=== PATIENT | female | born 1945 | race Caucasian/White ===

== ENCOUNTER 2021-05-25 11:15 | Outpatient (CLI) | payer MEDICARE, SELFPAY ==
--- NOTE | ~2021-05-25 | XR_ITS ---
EXAMINATION: XR_[id number]_CR EXAM DATE: 05/25/2021 11:35 INDICATION: No known recent injury provided at this time. Pain of the cervical spine. TECHNIQUE: Cervical spine frontal, lateral, lateral swimmers, and open-mouth odontoid projections. There is no prior study for comparison. FINDINGS: 2 mm anterolisthesis C3 on C4, 3 mm anterolisthesis C4 on C5 and C5 on C6, 2 mm anterolist hesis C6 on C7. There is moderate to severe cervical arthropathy. Mild to moderate loss of the mid ce rvical disc height. The odontoid process is intact. The lateral masses of C1 line up with C2. Prever tebral soft tissue and pre-dens space are within normal limits. Lung apices unremarkable. Mild carotid calcification, arterial sclerotic disease, with unknown amount of additional atheroscler otic disease. Consider correlating with carotid ultrasound. IMPRESSION: 1. Moderate to severe cervical arthropathy, mild to moderate disc disease. 2. Carotid arteriosclerosis. Reviewed, dictated and finalized at location A. INDER
== END 2021-05-25 11:16 | disposition home or self-care (01) ==
PROVIDERS: PCP Family Medicine; Visit Provider Family Medicine
DX: M47.812 Spondylosis without myelopathy or radiculopathy, cervical region (principal); I65.29 Occlusion and stenosis of unspecified carotid artery
CPT/HCPCS: 72040

== ENCOUNTER 2021-07-08 07:05 | Emergency (ER) | payer MEDICARE, SELFPAY ==
[2021-07-08 07:11] VITALS: BP 127/54; PULSE 68; RESP 21; TEMP 36.4; O2SAT 97
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
[2021-07-08] MEDS: LORazepam (*CRX) 0.5 MG TABLET 1 MG PO (07:45)
[2021-07-08 08:45] VITALS: BP 135/87; PULSE 58; RESP 16
== END 2021-07-08 08:45 | disposition home or self-care (01) ==
LOC: ANHED 08:06
PROVIDERS: Emergency Provider Emergency Medicine; PCP Family Medicine
DX: F41.0 Panic disorder [episodic paroxysmal anxiety] (principal); F41.9 Anxiety disorder, unspecified; F51.02 Adjustment insomnia; I10 Essential (primary) hypertension; E78.5 Hyperlipidemia, unspecified
CPT/HCPCS: 99283; A9270

== ENCOUNTER 2021-07-27 09:52 | Outpatient (CLI) | payer MEDICARE, SELFPAY ==
[2021-07-27 10:33] LABS: Alanine Aminotransferase 30 U/L (6-35); Albumin Level 4.1 g/dL (3.5-5.1); Alkaline Phosphatase 61 U/L (38-126); Anion Gap 7 mmol/L (8-16); Aspartate Amino Transferase 43 U/L (14-36); Bilirubin,Total 0.5 mg/dL (0.2-1.3); Blood Urea Nitrogen 17 mg/dL (7-17); Calcium 9.1 mg/dL (8.4-10.2); Carbon Dioxide 30 mmol/L (22-30); Chloride 87 mmol/L (98-107); Estimated Glomerular Filt Rate > 60; Glucose 122 mg/dL (65-110); Potassium 3.7 mmol/L (3.4-5.0); Sodium 124 mmol/L (137-145)
== END 2021-07-27 09:53 | disposition home or self-care (01) ==
LOC: ANHLAB 09:55
PROVIDERS: PCP Family Medicine; Visit Provider Family Medicine
DX: E87.1 Hypo-osmolality and hyponatremia (principal)
CPT/HCPCS: 36415; 80053

== ENCOUNTER 2021-07-29 13:15 | Outpatient (CLI) | payer MEDICARE, SELFPAY ==
[2021-07-29 13:52] LABS: Alanine Aminotransferase 29 U/L (6-35); Albumin Level 3.8 g/dL (3.5-5.1); Alkaline Phosphatase 61 U/L (38-126); Anion Gap 5 mmol/L (8-16); Aspartate Amino Transferase 36 U/L (14-36); Bilirubin,Total 0.4 mg/dL (0.2-1.3); Blood Urea Nitrogen 17 mg/dL (7-17); Calcium 8.3 mg/dL (8.4-10.2); Carbon Dioxide 29 mmol/L (22-30); Chloride 91 mmol/L (98-107); Estimated Glomerular Filt Rate > 60; Glucose 110 mg/dL (65-110); Potassium 4.1 mmol/L (3.4-5.0); Sodium 125 mmol/L (137-145)
== END 2021-07-29 13:16 | disposition home or self-care (01) ==
PROVIDERS: PCP Family Medicine; Visit Provider Family Medicine
DX: E87.1 Hypo-osmolality and hyponatremia (principal)
CPT/HCPCS: 36415; 80053

== ENCOUNTER 2021-08-03 10:19 | Outpatient (CLI) | payer MEDICARE, SELFPAY ==
[2021-08-03 11:01] LABS: Sodium Urine Random 57 meq/L
[2021-08-03 11:04] LABS: Anion Gap 4 mmol/L (8-16); Blood Urea Nitrogen 13 mg/dL (7-17); Calcium 8.6 mg/dL (8.4-10.2); Carbon Dioxide 30 mmol/L (22-30); Chloride 98 mmol/L (98-107); Estimated Glomerular Filt Rate > 60; Glucose 154 mg/dL (65-110); Potassium 3.6 mmol/L (3.4-5.0); Sodium 132 mmol/L (137-145)
[2021-08-06 10:49] LABS: Osmolality, Urine 232 mOsm/kg (50-1200)
== END 2021-08-03 10:20 | disposition home or self-care (01) ==
LOC: ANHLAB 10:24
PROVIDERS: PCP Family Medicine
DX: E87.1 Hypo-osmolality and hyponatremia (principal)
CPT/HCPCS: 36415; 80048; 83935; 84300

== ENCOUNTER 2021-08-18 10:35 | Outpatient (CLI) | payer MEDICARE, SELFPAY ==
[2021-08-18 11:24] LABS: Anion Gap 5 mmol/L (8-16); Blood Urea Nitrogen 16 mg/dL (7-17); Calcium 8.9 mg/dL (8.4-10.2); Carbon Dioxide 28 mmol/L (22-30); Chloride 104 mmol/L (98-107); Estimated Glomerular Filt Rate > 60; Glucose 56 mg/dL (65-110); Potassium 4.1 mmol/L (3.4-5.0); Sodium 137 mmol/L (137-145)
[2021-08-20 15:53] LABS: Osmolality, Urine 294 mOsm/kg (50-1200)
== END 2021-08-18 10:36 | disposition home or self-care (01) ==
PROVIDERS: PCP Family Medicine
DX: E87.1 Hypo-osmolality and hyponatremia (principal)
CPT/HCPCS: 36415; 80048; 83935

== ENCOUNTER 2022-02-10 07:04 | Outpatient (CLI) | payer MEDICARE, SELFPAY ==
--- NOTE | ~2022-02-10 | CT_ITS ---
EXAMINATION: CT brain wo/w con DATE: 02/10/2022 07:32 INDICATION: Aphasia. Visual disturbance. TECHNIQUE: Computed tomography (CT) of the head was performed without and with 100 mL Omnipaque 350 i ntravenous contrast. The mA was adjusted according to patient size. Iterative reconstruction techniqu e was employed. The dose-length product was 1210.67 mGy-cm. COMPARISON: None FINDINGS: There are scattered areas of low attenuation in the cerebral white matter. There is no intr acranial hemorrhage, acute infarction, or abnormal intracranial mass lesion. The ventricles are makayla l in size. There is mild mucosal thickening in the ethmoid sinuses. The mastoid air cells are normal. The orbits are normal. IMPRESSION: 1. Mild nonspecific cerebral white matter disease, which likely represents chronic small vessel ische lindsey disease. Reviewed, dictated and finalized at location A. L VIAL SETTER IMPRESSION: 1. Mild nonspecific cerebral white matter disease, which likely represents stone driller helper giovanna small vessel ischemic disease.
[2022-02-10 07:28] LABS: Estimated Glomerular Filt Rate 54
== END 2022-02-10 07:05 | disposition home or self-care (01) ==
PROVIDERS: PCP Family Medicine; Visit Provider Nurse Practitioner Family
DX: R13.0 Aphagia (principal); H53.9 Unspecified visual disturbance; R90.82 White matter disease, unspecified
CPT/HCPCS: 70470; Q9967

== ENCOUNTER 2024-10-06 11:21 | Observation (INO) | payer MEDICARE, SELFPAY ==
[2024-10-06] VITALS (15 sets, daily range): BP systolic 124–203; BP diastolic 67–93; PULSE 56–114; RESP 10–21; TEMP 36.3–36.9; O2SAT 95–100; BMI 20.1
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
--- NOTE | ~2024-10-06 | MR_ITS ---
MRI of the brain Clinical History: Lightheadedness Technique: Axial and sagittal T1-weighted images were acquired. These were followed by axial T2-weigh roberto, diffusion weighted, gradient, and FLAIR images. Following intravenous administration of 10 cc Pr oHance gadolinium, T1-weighted fat-sat imaging was performed in the axial and coronal planes. Findings: There is no acute infarct, intracranial hemorrhage or mass lesion. There is moderate chroni c microvascular ischemic change throughout the periventricular white matter bilaterally. Ventricles and subarachnoid spaces are unremarkable. Orbits are unremarkable. Paranasal sinuses and m astoid air cells are clear. Major intracranial flow voids are intact. Sagittal midline structures are intact. No abnormal postcontrast enhancement identified. IMPRESSION: Moderate chronic microvascular ischemic change, otherwise unremarkable exam. Reviewed, dictated and finalized at location M.
--- NOTE | ~2024-10-06 | CT_ITS ---
Non-contrast Head CT History: Dizziness COMPARISON: 02/10/2022 Technique: Axial non-contrast imaging of the brain was performed. Dose reduction technique was used on this scan by utilizing automated exposure control and iterative reconstruction technique. The dose -length product (DLP) was 605.33 mGy-cm. Findings: There is no evidence of intracranial hemorrhage, mass lesion, or acute infarct. Brain par enchyma appears normal. The ventricles and subarachnoid spaces are normal in size. The calvarium ap pears normal. The visualized paranasal sinuses and mastoid air cells are clear. Impression: No significant abnormality seen. Reviewed, dictated and finalized at location . Impression: No significant abnormality seen.
--- OUTSIDE RECORDS SUMMARY | 2024-10-06 11:25 | XMS_ITS | Clinical Summary ---
Author Organization [facility] Address [address] [place] [address] Care Team Providers Care Linoleum Floor Layer Name Role Phone George Maria MD Primary Care Provider Allergies Active Allergy Reactions Criticality Noted Date Comments Penicillins Unknown 07/30/2021 Medications clonazePAM 0.25 MG disintegrating tablet DISSOLVE 1 TABLET IN MOUTH TWICE DAILY 2 Active atorvastatin 10 MG tablet 2 Active metoprolol tartrate 50 MG tablet 2 Active amLODIPine 5 MG tablet Take 5 mg by mouth daily. 2 Active ondansetron 8 MG disintegrating tablet DISSOLVE 1 TABLET IN MOUTH EVERY 8 HOURS NEEDED FOR NAUSEA AND VOMITING 2 Active Cholecalciferol (VITAMIN D3) 50 MCG (1999 UT) Cap Take 1 capsule by mouth daily. 2 Active escitalopram 10 MG tablet Take 10 mg by mouth daily. 2 Active ALPRAZolam 0.25 MG tablet Take 0.25 mg by mouth 2 (two) times daily as needed. FOR ANXIETY 2 Active sertraline 25 MG tablet Take 25 mg by mouth daily. 2 Active triamterene-hydroCH LOROthiazide 37.5-25 MG tablet 2 Active Ascorbic Acid (VITAMIN C) 100 MG tablet Take 100 mg by mouth daily. Active multivitamin with minerals liquid Take 15 mLs by mouth daily. Active vitamin B-12 100 MCG tablet Take 50 mcg by mouth daily. Active diphenhydrAMINE 12.5 MG/5ML elixir Take by mouth 4 (four) times daily as needed for Allergies. Active loratadine 10 MG tablet Take 10 mg by mouth daily. Active Active Problems Problem Noted Date Diagnosed Date Hyponatremia 07/30/2021 Primary hypertension 07/30/2021 Immunizations Immunization Administration Dates Next Due Tdap (Generic) 03/06/2014 Social History Tobacco Use Types Packs/Day Years Used Date Smoking Tobacco: Former Smokeless Tobacco: Never Tobacco Cessation:Counseling Given: Yes Alcohol Use Standard Drinks/Week Comments Yes 0 (1 standard drink = 0.6 oz pur e alcohol) rare PHQ-2 Answer Date Recorded PHQ-2 Score - If the patient scores above 3, please move on to questions 3-9 0 07/30/2021 Comments No Sex and Gender Information Value Date Recorded Sex Assigned at Not on file Legal Sex Female 7:58 AM CDT Gender Identity Not on file Sexual Orientation Not on file Last Filed Vital Signs Vital Sign Reading Time Taken Comments Blood Pressure 136/82 07/30/2021 3:08 PM CDT Pulse 68 07/30/2021 3:08 PM CDT Temperature 36.7 C (98.1 F) 07/30/2021 3:08 PM CDT Respiratory Rate - - Oxygen Saturation 98% 07/30/2021 3:08 PM CDT ra Inhaled Oxygen Concentration - - Weight 50.3 kg (111 lb) 07/30/2021 3:08 PM CDT Height 157.5 cm (5' 2) 07/30/2021 3:08 PM CDT Body Mass Index 20.3 07/30/2021 3:08 PM CDT Plan of Treatment Health Maintenance Due Date Last Done Comments Pneumococcal Vaccine: 50+ Years (1 of 1 - PCV) 1994 Zoster Vaccines (1 of 2) 1994 Annual Medicare Wellness Visit 2009 Dexa Scan (General) 2009 RSV Immunization or 60+ Years (1 - 1-dose 75+ series) 2019 COVID-19 Vaccine ( - 2023-2 5 season) 2023 02/27/2021, 06/25/2020, 05/28/2020 DTaP, Tdap and Td Vaccines ( 2 - Td or Tdap) 03/06/2024 03/06/2014 Meningococcal B Vaccine Aged Out No l onger eligible based on patient's age to complete this topic Meningococcal Vaccine Aged Out No suly wu eligible based on patient's age to complete this topic RSV Immunizations Under 20 Months Aged Out No longer eligible b ased on patient's age to complete this topic Insurance [facility] Care Teams Linoleum Floor Layer Relationship Specialty Start Date End Date George Maria MD [address] [place] [address] PCP - General FAMILY PRACTICE 07/30/21
--- OUTSIDE RECORDS SUMMARY | 2024-10-06 11:25 | XMS_ITS | Patient Health Record ---
Author Organization [facility] Address [address] [place] [address] Care Team Providers Care Music Engraver Name Role Phone Tristan Sims Unavailable [phone] Reason For Referral No Information Medications Medication SIG (Take, Route, Frequency, Duration) Notes Start Date End Date Status Triamterene-HCTZ 37.5-25 MG Oral 11/30/2022 Active Atorvastatin Calcium 10 MG Oral 11/30/2022 Active Benzonatate 100 MG Oral 11/30/2022 Active Escitalopram Oxalate 10 MG Oral 11/30/2022 Active traZODone HCl 50 MG Oral 11/30/2022 Active Ondansetron 8 MG Oral 11/30/2022 Ac tive amLODIPine Besylate 5 MG Oral 11/30/2022 Active Metoprolol Tartrate 50 MG Oral 11/30/2022 Active Vitamin D3 Super Strength 50 MCG (1999) Oral 11/30/2022 Active ALPRAZolam 0.25 MG Oral 11/30/2022 Active Immunizations Vaccine Route Administration Date Status Comme nts Pfizer-Biontech Covid-19 Vac cine 1st dose Unknown 05/28/2020 Administered Pfizer-Biontech Covid-19 Vac cine 1st dose Unknown 06/25/2020 Administered Pfizer-Biontech Covid-19 Vac cine 1st dose Unknown 02/27/2021 Administered Plan Of Treatment No Information Insurance Providers Payer Name Payer Address Payer Phone Subscriber Number Group Number Insured Name Patient Relationship to Insured Coverage Start Date Coverage End Date [employer] Medicare Replacement/ Advantage - Hmo [address] [address] [place] [address] [id number] JENNIFER MCDERMOTT Self - patient is the insured
--- OUTSIDE RECORDS SUMMARY | 2024-10-06 12:55 | XMS_ITS | Clinical Summary ---
Author Organization [facility] Address [address] [place] [address] Care Team Providers Care Stain Remover Name Role Phone George Maria MD Primary [...] patient's age to complete this topic Insurance [facility] Care Teams Stain Remover Relationship Specialty Start Date End Date George Maria MD [address] [place] [address] PCP - General FAMILY PRACTICE 07/30/21
[2024-10-06] MEDS: diazePAM INJ (*CRX) 10 MG/2 ML SYRINGE 5 MG IV PUSH (13:37)
--- NOTE | 2024-10-06 13:49 | ECG_ITS ---
Test Date: 2024-10-06 14:29:24 Measurements Intervals [place] Rate: 54 P: 64 CA: 171 QRS: -17 QRSD: 73 T: 44 QT: 390 QTc: 371 Interpretive Statements SINUS BRADYCARDIA OTHERWISE NORMAL ELECTROCARDIOGRAM No previous ECG available for comparison Electronically Signed On 10-07-2024 08:06:42 CDT by Thee Cabello M.D.
[2024-10-06 13:53] LABS: Hematocrit 42.6 % (37.0-47.0); Hemoglobin 13.8 g/dL (12.0-15.0); Immature Granulocyte Percent A 0.4 % (0-0.5); Lymphocytes Absolute Auto 1.83 K/mm3 (0.9-3.2); Mean Corpuscular HGB Conc 32.4 g/dl (32-36); Mean Corpuscular Hemoglobin 31.2 pg (26-34); Mean Corpuscular Volume 96.2 fl (80-100); Nucleated Red Blood Cells Absolute Auto 0.000 K/mm3 (0.0-0.012); Nucleated Red Blood Cells Perc 0.0 % (0.0-0.2); Platelet Count Result 267 k/mm3 (150-375); Red Blood Count 4.43 M/mm3 (4.2-5.4); White Blood Count 8.3 K/mm3 (4.5-10.0)
[2024-10-06 14:09] LABS: Alanine Aminotransferase 18 U/L (6-35); Albumin Level 4.1 g/dL (3.5-5.1); Alkaline Phosphatase 69 U/L (38-126); Anion Gap 8 mmol/L (4-12); Aspartate Amino Transferase 36 U/L (14-36); Bilirubin,Total 0.6 mg/dL (0.2-1.3); Blood Urea Nitrogen 12 mg/dL (7-17); Calcium 9.4 mg/dL (8.4-10.2); Carbon Dioxide 26 mmol/L (22-30); Chloride 105 mmol/L (98-107); Estimated CRCL calculation 40 ml/min; Estimated Glomerular Filt Rate > 60; Glucose 87 mg/dL (65-110); Potassium 4.3 mmol/L (3.4-5.0); Sodium 139 mmol/L (137-145); Total Protein 7.3 g/dL (6.3-8.2)
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
--- NOTE | 2024-10-06 15:36 | PC.NURSE ---
Patient ambulated to the bathroom with a steady gait.
[2024-10-06] MEDS: ASPIRIN 81 MG CHEWABLE TABLET 324 MG PO (16:54)
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
--- OUTSIDE RECORDS SUMMARY | 2024-10-06 18:24 | XMS_ITS | Clinical Summary ---
Author Organization [facility] Address [address] [place] [address] Care Team Providers Care Exchange Administrator Name Role Phone George Maria MD Primary [...] patient's age to complete this topic Insurance [facility] [place] [address] Care Teams Exchange Administrator Relationship Specialty Start Date End Date George Maria MD [address] [place] [address] PCP - General FAMILY PRACTICE 07/30/21
--- NOTE | 2024-10-06 18:38 | ADMGEN ---
This patient, Roxanna Aguilar, was admitted to Medical Room 247-. Patient/family oriented to hospital policies and general routines including ID bracelet, bed and alarms, visiting hours, pain management, procedures, bathroom and other care routines, personal items, smoking policy, room service/diet, and visiting hours. Information on how to activate the Rapid Response Team has been discussed. Patient/Family are encouraged to report perceived risks to care and to ask questions if they do not understand what they are told or what they should do.
[2024-10-06] MEDS: METOPROLOL TARTRATE 50 MG TAB PO (21:01)
[2024-10-06 21:45] LABS: Add Urine Microscopic? YES; Appearance Urine Clear (Clear); Glucose Urine UA Negative (Negative); Leukocyte Esterase Ur Trace LEU/UL (Negative); Nitrate Urine Negative (Negative); Non Pathogenic Casts 0-2; Specific Grav Ur 1.033 (1.001-1.035)
[2024-10-07] VITALS (10 sets, daily range): BP systolic 122–171; BP diastolic 56–85; PULSE 60–70; RESP 12–18; TEMP 36.4–36.7; O2SAT 95–100
[2024-10-07 04:54] LABS: Hematocrit 42.9 % (37.0-47.0); Hemoglobin 14.0 g/dL (12.0-15.0); Immature Granulocyte Percent A 0.3 % (0-0.5); Lymphocytes Absolute Auto 2.02 K/mm3 (0.9-3.2); Mean Corpuscular HGB Conc 32.6 g/dl (32-36); Mean Corpuscular Hemoglobin 30.9 pg (26-34); Mean Corpuscular Volume 94.7 fl (80-100); Nucleated Red Blood Cells Absolute Auto 0.000 K/mm3 (0.0-0.012); Nucleated Red Blood Cells Perc 0.0 % (0.0-0.2); Platelet Count Result 281 k/mm3 (150-375); Red Blood Count 4.53 M/mm3 (4.2-5.4); White Blood Count 7.6 K/mm3 (4.5-10.0)
[2024-10-07 05:02] LABS: Hemoglobin A1C 5.7 % (<5.7)
[2024-10-07 05:30] LABS: Anion Gap 9 mmol/L (4-12); Blood Urea Nitrogen 13 mg/dL (7-17); Calcium 9.4 mg/dL (8.4-10.2); Carbon Dioxide 25 mmol/L (22-30); Chloride 107 mmol/L (98-107); Cholesterol 164 mg/dL (0-200); Estimated CRCL calculation 36 ml/min; Estimated Glomerular Filt Rate > 60; Glucose 94 mg/dL (65-110); HDL Direct 56 mg/dL; Potassium 4.0 mmol/L (3.4-5.0); Sodium 141 mmol/L (137-145); Triglycerides 145 mg/dL (<150)
--- NOTE | 2024-10-07 07:20 | P.PNIM_ITS ---
Progress Note: A&P Assessment and Plan (1) Episodic lightheadedness: Code(s): R42 - Dizziness and giddiness Status: Acute Assessment and Plan: * admission for observation and telemetry * Head CT, 10/06: No significant abnormality seen. * CTA Head/Neck, 10/06: * 80% stenosis of the proximal right internal carotid artery related to prominent calcified plaque. * 50-60% stenosis at the proximal left internal carotid artery, related to calcified plaque. * Probable focal high-grade stenosis at the origin of the right vertebral artery. * neurology consulted * brain MRI w/wo ordered * echo w/Bubble ordered * neuro checks Q4 * monitor daily labs, check lipid panel, UA, and A1C * increase Atorvastatin from 10 mg -> 40 mg PO daily * start Plavix 75 mg PO and ASA 81 mg (2) Stenosis of right vertebral artery: Code(s): I65.01 - Occlusion and stenosis of right vertebral artery Status: Acute Assessment and Plan: * see work up above (3) Carotid artery stenosis: Qualifiers: Laterality: bilateral Qualified Code(s): I65.23 - Occlusion and stenosis of bilateral carotid arteries Code(s): I65.29 - Occlusion and stenosis of unspecified carotid artery Status: Acute Assessment and Plan: * see work up above (4) Essential (primary) hypertension: Code(s): I10 - Essential (primary) hypertension Status: Acute Assessment and Plan: * elevated x1 week and accompanied by dizziness * chronic, currently hypertensive: 200/79 - 165/69 * continue home medications: Metoprolol * will start amlodipine 5 mg PO daily * monitor * 10/07: 138/63 (5) Dyslipidemia: Code(s): E78.5 - Hyperlipidemia, unspecified Status: Chronic Assessment and Plan: * increase atorvastatin 10 mg -> 40 mg daily Plan Diet: Heart healthy GI Prophylaxis: N/a DVT Prophylaxis: SCDs IV fluids: None Lines/Tubes: Peripheral IV Code Status: Full code Subjective Date/time seen: 10/07/24 07:20 Interval history: 79 y/o F with PMH of HTN, dyslipidemia, and depression presents here with hypertension and dizziness. The patient presents here from home on 10/06 for further evaluation of high blood pressure and dizziness. She reports she tracks her blood pressure daily and she typically runs high until she takes her blood pressure medications and then it resolves. 10/07/2024 patient is sitting comfortably at bedside during examination. Accompanied by son. Patient states that she feels significantly better. Neurology consult pending at this time. Planning on echocardiogram, brain MRI, increasing atorvastatin from 10 mg to 40 mg, as well as starting Plavix 75 mg p.o. an aspirin 81 mg. Patient is otherwise hemodynamically stable and doing better today, blood pressures down to 138/63. Review of Systems Review of Systems: All systems reviewed & are unremarkable except as noted in HPI and below Exam Const: General: comfortable and no acute distress Other: , female, elderly, nontoxic appearance HENMT: Face/Nose/Sinus: Normal nares present Mouth: Yes moist mucous membranes Eyes: General: appearance normal, both eyes and all related structures Sclera: sclerae normal Pupils: Equal, round and reactive pupils present EOM: EOMs intact bilaterally Resp: Effort & Inspection: normal respiratory effort Auscultation: clear to auscultation bilaterally Cardio: Rate: regular rate Rhythm: regular rhythm Other: S1-S2 present without murmur, rub, ectopy GI: Other: Abdomen soft, nondistended, nontender. Normoactive bowel sounds in all quadrants. Skin: General skin exam: normal color and no rashes or lesions noted Wounds: no wounds Neuro: Cranial nerves: Yes Equal, round and reactive pupils present Speech: normal speech Motor exam (neuro): 5/5 motor strength present throughout Sensory Exam: normal sensation Other: A&O x4 Extrem: General: normal to inspection Psych: Mental Status: mental status grossly normal Affect: normal affect Other: Good insight and judgment, pleasant Objective Data Vital Signs Vital Signs: Vital Signs - 24 hr 10/06/24 11:41 10/06/24 12:01 10/06/24 12:45 Temperature 97.4 F L Pulse Rate 67 60 56 L Respiratory Rate 20 18 21 H Blood Pressure 200/79 H 197/88 H 182/71 H Pulse Oximetry 100 100 97 Oxygen Delivery Room Air 10/06/24 13:01 10/06/24 14:01 10/06/24 14:41 Temperature Pulse Rate 114 H 57 L 64 Respiratory Rate 18 21 H 17 Blood Pressure 170/77 H 124/67 163/70 H Pulse Oximetry 97 95 96 Oxygen Delivery 10/06/24 15:18 10/06/24 15:18 10/06/24 15:18 Temperature Pulse Rate 70 74 76 Respiratory Rate Blood Pressure 192/79 H 186/76 H 194/93 H Pulse Oximetry Oxygen Delivery 10/06/24 15:31 10/06/24 16:31 10/06/24 17:01 Temperature Pulse Rate 63 62 63 Respiratory Rate 21 H 20 20 Blood Pressure 165/69 H 195/86 H 197/83 H Pulse Oximetry 98 99 97 Oxygen Delivery 10/06/24 17:31 10/06/24 18:01 10/06/24 18:15 Temperature Pulse Rate 69 63 Respiratory Rate 10 L 21 H 21 H Blood Pressure 177/74 H 179/83 H Pulse Oximetry 97 97 97 Oxygen Delivery 10/06/24 18:39 10/06/24 20:00 10/06/24 21:39 Temperature 97.8 F 98.4 F Pulse Rate 69 63 Respiratory Rate 16 16 Blood Pressure 203/84 H 154/68 H Pulse Oximetry 97 95 Oxygen Delivery Room Air 10/07/24 00:00 10/07/24 07:13 Temperature 97.7 F 98.0 F Pulse Rate 60 62 Respiratory Rate 14 14 Blood Pressure 122/56 L 155/62 H Pulse Oximetry 96 100 Oxygen Delivery Intake/Output Intake/Output: Intake & Output 10/04/24 10/05/24 10/06/24 10/07/24 23:59 23:59 23:59 23:59 Intake Total 100 Output Total 500 Balance -400 Meds/Results Medications: Active Medications Generic Name Dose Route Start Last Admin Trade Name Freq PRN Reason Stop Dose Admin Amlodipine Besylate 5 mg 10/07/24 09:00 Amlodipine Besylate 5 Mg Tablet PO DAILY [facility] Aspirin 81 mg 10/07/24 09:00 Aspirin 81 Mg [facility] [place] Atorvastatin Calcium 40 mg 10/07/24 09:00 Atorvastatin 40 Mg Tablet PO DAILY [facility] Clopidogrel Bisulfate 75 mg 10/07/24 09:00 Clopidogrel Bisulfate 75 Mg [facility] [place] Metoprolol Tartrate 50 mg 10/06/24 21:00 10/06/24 21:01 Metoprolol Tartrate 50 Mg Tab PO 50 mg Q12HR [facility] Administration Multivitamins Therapeutic 1 tablet 10/07/24 09:00 Multivitamins Therapeutic Tab (*Bkc) PO DAILY [facility] Perflutren Lipid Microsphere 0 ml 10/06/24 16:49 Perflutren Lipid Microspheres 1.5 Ml Vial Diluted To 10 Ml Total Volume IV PUSH 10/09/24 16:51 ONCE PRN adequate visualization Protocol Perflutren Lipid Microsphere 0 ml 10/06/24 17:51 Perflutren Lipid Microspheres 1.5 Ml Vial Diluted To 10 Ml Total Volume IV PUSH 10/09/24 17:51 ONCE PRN adequate visualization Protocol Vitamin D 50 mcg 10/07/24 09:00 Cholecalciferol (Vitamin D3) 25 Mcg (1,000 Units) Tablet PO DAILY [facility] Radiology Results: ITS Impressions Head CT 10/06/24 14:16 Impression: No significant abnormality seen. Head/Neck CTA 10/06/24 15:22 Impression: 80% stenosis of the proximal right internal carotid artery related to prominent calcified plaque. 50-60% stenosis at the proximal left internal carotid artery, related to calcified plaque. Probable focal high-grade stenosis at the origin of the right vertebral artery. Labs Labs: Laboratory Results - last 24 hr 10/06/24 10/06/24 10/07/24 13:47 21:27 04:33 WBC 8.3 7.6 RBC 4.43 4.53 Hgb 13.8 14.0 Hct 42.6 42.9 MCV 96.2 94.7 MCH 31.2 30.9 MCHC 32.4 32.6 RDW 12.8 12.8 Plt Count 267 281 MPV 9.6 9.6 Immature Gran % (Auto) 0.4 0.3 Neut % (Auto) 67.9 58.0 Lymph % (Auto) 22.1 26.8 [place] % (Auto) 8.0 11.8 H Eos % (Auto) 1.2 2.3 Baso % (Auto) 0.4 0.8 Lymph # (Auto) 1.83 2.02 [place] # (Auto) 0.7 H 0.9 H Eos # (Auto) 0.1 0.2 Baso # (Auto) 0.0 0.1 Abs Immat Gran (auto) 0.03 0.02 Absolute Neuts (auto) 5.6 4.4 Absolute Nucleated RBC 0.000 0.000 Nucleated RBC % 0.0 0.0 Sodium 139 141 Potassium 4.3 4.0 Chloride 105 107 Carbon Dioxide 26 25 Anion Gap 8 9 BUN 12 13 Creatinine 0.76 0.86 Estim Creat Clear Calc 40 36 Estimated GFR > 60 > 60 Glucose 87 94 Hemoglobin A1c 5.7 Calcium 9.4 9.4 Total Bilirubin 0.6 AST 36 ALT 18 Alkaline Phosphatase 69 Total Protein 7.3 Albumin 4.1 Triglycerides 145 Cholesterol 164 LDL Cholesterol Direct 62 HDL Direct 56 Urine Color Yellow Urine Appearance Clear Urine pH 7.5 Ur Specific [place] 1.033 Urine Protein Negative Urine Glucose (UA) Negative Urine Ketones Negative Ur Blood (Man) Negative Urine Nitrate Negative Urine Bilirubin Negative Urine Urobilinogen 0.2 Leukocyte Esterase Rfl Trace H Urine RBC 0-2 Urine WBC 0-5 Ur Squamous Epith Cells None seen Urine Bacteria None seen Urine Casts 0-2 Quality VTE Prophylaxis VTE prophylaxis: mechanical ordered
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
[2024-10-07] MEDS: ASPIRIN 81 MG ENTERIC TABLET PO (09:17)
[2024-10-07] MEDS: METOPROLOL TARTRATE 50 MG TAB PO ×2 (09:17→20:19)
[2024-10-07] MEDS: MULTIVITAMINS THERAPEUTIC TAB (*BKC) 1 TABLET PO (09:17)
[2024-10-07] MEDS: CLOPIDOGREL BISULFATE 75 MG TABLET PO (09:17)
[2024-10-07] MEDS: CHOLECALCIFEROL (VITAMIN D3) 25 MCG (1,000 UNITS) TABLET 50 MCG PO (09:17)
[2024-10-07] MEDS: diazePAM (*CRX) 10 MG TABLET PO (12:15)
[2024-10-07] MEDS: ATORVASTATIN 40 MG TABLET PO (20:20)
[2024-10-08] VITALS: BP 149/71; PULSE 60; RESP 18; TEMP 36.3; O2SAT 97
[2024-10-08 04:00] VITALS: BP 137/68; PULSE 56; RESP 20; TEMP 36.9; O2SAT 99
[2024-10-08 07:13] LABS: Hematocrit 45.7 % (37.0-47.0); Hemoglobin 14.6 g/dL (12.0-15.0); Immature Granulocyte Percent A 0.3 % (0-0.5); Lymphocytes Absolute Auto 2.20 K/mm3 (0.9-3.2); Mean Corpuscular HGB Conc 31.9 g/dl (32-36); Mean Corpuscular Hemoglobin 30.5 pg (26-34); Mean Corpuscular Volume 95.4 fl (80-100); Nucleated Red Blood Cells Absolute Auto 0.000 K/mm3 (0.0-0.012); Nucleated Red Blood Cells Perc 0.0 % (0.0-0.2); Platelet Count Result 289 k/mm3 (150-375); Red Blood Count 4.79 M/mm3 (4.2-5.4); White Blood Count 8.9 K/mm3 (4.5-10.0)
[2024-10-08 07:40] LABS: Alanine Aminotransferase 20 U/L (6-35); Albumin Level 4.3 g/dL (3.5-5.1); Alkaline Phosphatase 67 U/L (38-126); Anion Gap 6 mmol/L (4-12); Aspartate Amino Transferase 38 U/L (14-36); Bilirubin,Total 0.6 mg/dL (0.2-1.3); Blood Urea Nitrogen 14 mg/dL (7-17); Calcium 10.0 mg/dL (8.4-10.2); Carbon Dioxide 27 mmol/L (22-30); Chloride 105 mmol/L (98-107); Estimated CRCL calculation 35 ml/min; Estimated Glomerular Filt Rate 60; Glucose 103 mg/dL (65-110); Potassium 4.4 mmol/L (3.4-5.0); Sodium 138 mmol/L (137-145); Total Protein 7.6 g/dL (6.3-8.2)
[2024-10-08 07:54] VITALS: BP 124/57; PULSE 60; RESP 17; TEMP 36.4; O2SAT 97
[2024-10-08 08:16] VITALS: PULSE 68
[2024-10-08] MEDS: METOPROLOL TARTRATE 50 MG TAB PO (08:16)
[2024-10-08] MEDS: CHOLECALCIFEROL (VITAMIN D3) 25 MCG (1,000 UNITS) TABLET 50 MCG PO (08:16)
[2024-10-08] MEDS: MULTIVITAMINS THERAPEUTIC TAB (*BKC) 1 TABLET PO (08:16)
[2024-10-08] MEDS: CLOPIDOGREL BISULFATE 75 MG TABLET PO (08:18)
[2024-10-08] MEDS: ASPIRIN 81 MG ENTERIC TABLET PO (08:18)
[2024-10-08 12:54] VITALS: BP 187/90; PULSE 62; RESP 16; TEMP 37.1; O2SAT 97
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
--- NOTE | 2024-10-08 17:51 | ECHO_ITS ---
Patient Info Name: Roxanna Aguilar Age: 79 years : 1945 Gender: Female Ht: 62 in Wt: 110 lbs BSA: 1.48 m2 HR: 56 bpm BP: 147 / 68 mmHg Technical Quality: Good Exam Date: 10/08/2024 10:16 AM Patient Status: I Admit Date: 10/06/2024 Exam Type: CA echo doppler w bubble study Complete two-dimensional, color flow and Doppler transthoracic echocardiogram is performed with agitated saline. Staff Referring Physician: Gregory Loo Staff Trainer: Gina Montesinos Attending Provider: Lisa Winchester Contrast/Agitated Saline Contrast/Ag. Saline: Agitated Saline Amount: 16.00 ml Summary 1. Agitated saline study is negative for [id number]-yn-jpyw shunt. 2. The left ventricle is normal in size and systolic function. The left ventricular ejection fraction is visually estimated to be 60-65%. 3. The right ventricle is normal in size and systolic function. Left Ventricle The left ventricle is normal in size and systolic function. The left ventricular ejection fraction is visually estimated to be 60-65%. Right Ventricle The right ventricle is normal in size and systolic function. Left Atria The left atrium is normal size. Right Atria The right atrium is normal size. Atrial Septum Agitated saline study is negative for fjwdi-my-ojay shunt. Aortic Valve The aortic valve is sclerotic and trileaflet but opens well. There is no aortic regurgitation. Pulmonic Valve The pulmonic valve is not well visualized. Mitral Valve The mitral valve leaflets are sclerotic but opens well. There is trace mitral regurgitation. Tricuspid Valve The tricuspid valve is normal. There is mild tricuspid regurgitation. Pericardium/Pleural Pericardium is normal in appearance with no evidence for significant pericardial effusion. Inferior Vena Cava Normal inferior vena cava with >50% collapse upon inspiration consistent with normal right atrial pressure, 3 mmHg. Aorta The aortic root at the level of the sinus of Valsalva measures 2.9 cm in diameter. Left Ventricular Outflow Tract Name Value Normal LVOT 2D LVOT Diameter 1.9 cm LVOT Doppler LVOT Peak Velocity 80 cm/s LVOT Peak Gradient 3 mmHg LVOT Mean Gradient 2 mmHg LVOT VTI 19 cm LVOT VTI/AV VTI Ratio 0.6 LVOT Stroke Volume 50 ml LVOT CO 2.9 l/min LVOT CI 2.0 l/min/m2 Pulmonic Valve Name Value Normal PV Doppler PV Peak Velocity 83 cm/s PV Peak Gradient 3 mmHg Mitral Valve Name Value Normal MV Doppler MV Peak Gradient 3 mmHg MV Mean Gradient 1 mmHg MV Area (Cont Eq VTI) 2.2 cm2 MV Regurgitation Doppler MR Peak Gradient 99 mmHg MV Diastolic Function MV E Peak Velocity 55 cm/s MV A Peak Velocity 71 cm/s MV E/A 0.8 MV Decel Time (PW) 372 ms MV Annular TDI MV E/e' (Septal) 9.3 MV E/e' (Lateral) 11.5 MV E/e' (Average) 10.4 Tricuspid Valve Name Value Normal TV Regurgitation Doppler TR Peak Velocity 272 cm/s TR Peak Gradient 26 mmHg Estimated PAP/RSVP RA Pressure 3 mmHg <=5 PA Systolic Pressure 33 mmHg <36 RV Systolic Pressure 33 mmHg <36 TV Annular TDI TV Lateral Niki s' Velocity 10.5 cm/s >=9.5 Aortic Valve Name Value Normal AV Doppler AV Peak Velocity 149 cm/s AV Peak Gradient 9 mmHg AV Mean Gradient 5 mmHg AV VTI 33 cm AV Area (Cont Eq VTI) 1.5 cm2 >=3.0 AV Area (Cont Eq Dwight) 1.4 cm2 AV DI (Dwight) 0.53 AV Regurgitation 2D LVOT Area 2.7 cm2 Ventricles Name Value Normal LV Dimensions 2D/MM IVS Diastolic Thickness (2D) 1.0 cm 0.6-1.0 LVID Diastole (2D) 3.5 cm 3.8-5.2 LVIW Diastolic Thickness (2D) 1.0 cm 0.6-0.9 LVID Systole (2D) 2.3 cm 2.2-3.5 LVOT Diameter 1.9 cm LV Mass (2D Cubed) 105.83 g 67.00-162.00 LV Mass Index (2D Cubed) 72 g/m2 43-95 Relative Wall Thickness (2D) 0.57 <=0.42 LV Fractional Shortening/Ejection Fraction 2D/MM LV Fractional Shortening (2D) 33 % 27-45 LV EF (2D Teichholz) 63 % LV Diastolic Volume (4C MOD) 44 ml LV EF (4C MOD) 65 % LV Diastolic Volume (2C MOD) 35 ml LV EF (2C MOD) 56 % LV Diastolic Volume (BP MOD) 39 ml 46-106 LV Diastolic Volume Index (BP MOD) 27 ml/m2 29-61 LV Systolic Volume (BP MOD) 15 ml 14-42 LV Systolic Volume Index (BP MOD) 10 ml/m2 8-24 LV EF (BP MOD) 62 % 54-74 LV Diastolic Length (4C) 6.6 cm LV Systolic Length (4C) 5.5 cm LV Stroke Volume (4C MOD) 29 ml Atria Name Value Normal LA Dimensions LA Volume (4C A-L) 30 ml LA Volume (BP A-L) 31 ml RA Dimensions RA Systolic Major [place] Length (4C) 5.1 cm 2.2-2.8 RA Area (4C) 10.7 cm2 <=18.0 Report Signatures
== END 2024-10-08 15:05 | disposition home or self-care (01) ==
LOC: ANHED 16:29 → ANH2MED 10-07 06:52
PROVIDERS: Physician Assistant; Student in an Organized Health Care Education/Training Program; Admitting Provider Internal Medicine; Emergency Provider Emergency Medicine; PCP Family Medicine; Visit Provider Family Medicine
DX: R42 Dizziness and giddiness (principal); I10 Essential (primary) hypertension; I65.01 Occlusion and stenosis of right vertebral artery; I65.23 Occlusion and stenosis of bilateral carotid arteries; E78.5 Hyperlipidemia, unspecified; F32.A Depression, unspecified; E55.9 Vitamin D deficiency, unspecified; Z87.891 Personal history of nicotine dependence; Z79.82 Long term (current) use of aspirin; Z79.899 Other long term (current) drug therapy
CPT/HCPCS: 36415; 70450; 70496; 70498; 70553; 80048; 80053; 80061; 81001; 83036; 85025; 93005; 93306; 96374; 96375; 99285; A9270; A9579; G0378; J3360; Q9967

== ENCOUNTER 2024-10-17 10:38 | Emergency (ER) | payer MEDICARE, SELFPAY ==
[2024-10-17] VITALS (9 sets, daily range): BP systolic 122–174; BP diastolic 51–84; PULSE 58–71; RESP 12–24; TEMP 37.1; O2SAT 96–100
--- NOTE | ~2024-10-17 | XR_ITS ---
CHEST RADIOGRAPH, PA AND LATERAL CLINICAL HISTORY: weakness . COMPARISON: None available TECHNIQUE: PA and lateral views of the chest. FINDINGS The cardiomediastinal silhouette is unremarkable. The lungs are clear. IMPRESSION: No focal infiltrate or effusion. Reviewed, dictated and finalized at location A.
--- NOTE | ~2024-10-17 | CT_ITS ---
History: Weakness PROCEDURE: CT head without contrast. COMPARISON: 10/06/2024 TECHNIQUE: Axial imaging of the head performed from the skull base to the vertex without IV contrast. Sagittal a nd coronal reformations obtained. DLP: 757 mGy-cm FINDINGS: The ventricles are enlarged. The dilatation of the ventricles is proportional to the degree of sulcal prominence, not uncommon in the senescent brain. Decreased attenuation is identified within the periventricular white matter, likely secondary to micr ovascular ischemic disease, in a patient of this age. There is no mass, mass effect or midline shift. There is no abnormal extra-axial fluid collection or intracranial hemorrhage. Visualized paranasal sinuses are clear. The mastoid air cells are well aerated. No acute displaced fractures within the overlying cranium. Impression: No acute intracranial hemorrhage or suspicious mass effect. Reviewed, dictated and finalized at location A. Impression: No acute intracranial hemorrhage or suspicious mass effect.
--- OUTSIDE RECORDS SUMMARY | 2024-10-17 11:06 | XMS_ITS | Patient Health Record ---
Author Organization [facility] [employer] [facility] Address [address] [place] [address] Care Team Providers Care General Counselor Name Role Phone Tristan Sims Unavailable [phone] Reason For Referral No Information Medications Medication [...] Medicare Replacement/ Advantage - Hmo [address] [address] [place] [address] [id number] JENNIFER MCDERMOTT Self - patient is the insured
--- NOTE | 2024-10-17 11:12 | ECG_ITS ---
Test Date: 2024-10-17 12:21:56 Measurements Intervals [place] Rate: 62 P: 55 ND: 164 QRS: -18 QRSD: 89 T: 40 QT: 375 QTc: 381 Interpretive Statements SINUS RHYTHM Electronically Signed On 10-17-2024 13:11:07 CDT by Wyatt Hopson D.O
--- OUTSIDE RECORDS SUMMARY | 2024-10-17 11:21 | XMS_ITS | Clinical Summary ---
Author Organization [facility] Address [address] [place] [address] Care Team Providers Care Information Technology Manager Name Role Phone George Maria MD Primary [...] patient's age to complete this topic Insurance [facility] Care Teams Information Technology Manager Relationship Specialty Start Date End Date George Maria MD [address] [place] [address] PCP - General FAMILY PRACTICE 07/30/21
[2024-10-17 12:20] LABS: Hematocrit 43.5 % (37.0-47.0); Hemoglobin 14.0 g/dL (12.0-15.0); Immature Granulocyte Percent A 0.5 % (0-0.5); Lymphocytes Absolute Auto 1.44 K/mm3 (0.9-3.2); Mean Corpuscular HGB Conc 32.2 g/dl (32-36); Mean Corpuscular Hemoglobin 30.7 pg (26-34); Mean Corpuscular Volume 95.4 fl (80-100); Nucleated Red Blood Cells Absolute Auto 0.000 K/mm3 (0.0-0.012); Nucleated Red Blood Cells Perc 0.0 % (0.0-0.2); Platelet Count Result 305 k/mm3 (150-375); Red Blood Count 4.56 M/mm3 (4.2-5.4); White Blood Count 8.8 K/mm3 (4.5-10.0)
[2024-10-17 12:32] LABS: INR 0.9; Partial Thromboplastin Time 26.8 Seconds (22.3-36.8); Prothrombin Time 12.7 Seconds (11.1-14.7)
[2024-10-17 12:43] LABS: Alanine Aminotransferase 18 U/L (6-35); Albumin Level 4.4 g/dL (3.5-5.1); Alkaline Phosphatase 75 U/L (38-126); Anion Gap 7 mmol/L (4-12); Aspartate Amino Transferase 38 U/L (14-36); Bilirubin,Total 0.6 mg/dL (0.2-1.3); Blood Urea Nitrogen 16 mg/dL (7-17); Calcium 9.5 mg/dL (8.4-10.2); Carbon Dioxide 28 mmol/L (22-30); Chloride 102 mmol/L (98-107); Estimated CRCL calculation 35 ml/min; Estimated Glomerular Filt Rate > 60; Glucose 120 mg/dL (65-110); Potassium 3.8 mmol/L (3.4-5.0); Sodium 137 mmol/L (137-145); Total Protein 7.8 g/dL (6.3-8.2)
[2024-10-17 13:06] LABS: Add Urine Microscopic? YES; Appearance Urine Clear (Clear); Glucose Urine UA Negative (Negative); Leukocyte Esterase Ur 1+ LEU/UL (Negative); Need Manual Microscopic Reviewed; Nitrate Urine Negative (Negative); Non Pathogenic Casts 0-2; Specific Grav Ur 1.008 (1.001-1.035)
--- NOTE | 2024-10-17 13:17 | ED_ITS ---
HPI - General Adult General Chief complaint: Recheck/Abnormal Lab/Rx Stated complaint: vascular problems History of Present Illness HPI narrative: Patient is a 79-year-old female who presents ER at the recommendation of the [facility] vascular clinic. Patient has known carotid stenosis on the right side. She was calling and trying to get scheduled for a follow-up appointment to be evaluated for possible carotid endarterectomy. There having conversation and she brought up the fact that she felt weak in her right arm and leg after getting up today and they recommended she should come in and be evaluated for possible CVA. She reports that for the last year she will get intermittent sensation of feeling weak in her arm and leg. She only feels it when she is standing up and not when she is at rest. She occasionally feels lightheaded when she sits up in the morning as well but she knows to sit still intellect does away and then she can get the rest the way out. She is on aspirin. She has no facial droop or difficulty speaking. She has been able to walk without issue today. Patient brought to stroke stop and has a stroke scale of 0. Patient was recently admitted here due to elevated blood pressures and feeling lightheaded. MRI of brain showed no infarctions. Related Data Home Medications ?Medication ?Instructions ?Recorded ?Confirmed ?Last Taken ?Type aspirin 81 mg tablet,delayed 81 mg PO DAILY 04/29/22 10/09/24 10/06/24 History release (Adult Low Dose Aspirin) multivitamin 1 tablet PO DAILY 10/17/23 10/09/24 10/06/24 History Allergies Allergy/AdvReac Type Severity Reaction Status Date / Time prednisone Allergy Mild Hives Verified 10/09/24 07:37 Penicillins AdvReac Intermediate unknown Verified 10/09/24 07:37 Review of Systems 2 Review of Systems: All systems reviewed & are unremarkable except as noted in HPI and below Constitutional: Constitutional: Reports no additional constitutional complaints ENT: Reports system reviewed and no additional complaints, except as documented Cardiovascular: Cardiovascular: Reports no additional cardiovascular complaints Respiratory: Respiratory: Reports no additional respiratory complaints Integumentary/Breasts: Skin/Breast: Reports system reviewed and no additional complaints, except as docu [facility] Past Medical History Medical History (Updated 10/17/24 @ 14:30 by Orion Martin MD) Carotid artery stenosis Carotid artery stenosis Nasal congestion Hair loss Vitamin D deficiency Elevated fasting glucose BMI between 19-24,adult Insomnia Depressed Dyslipidemia Environmental allergies Essential (primary) hypertension Family History Family History Mother Family history of coronary artery disease Acute myocardial infarction Father Family history of malignant neoplasm of urinary bladder Acute myocardial infarction Heart disease Daughter Asthma Sibling Acute myocardial infarction Sibling No problems noted. 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 HEAD: Normocephalic, atraumatic. EYES: PERRL and EOMI. ENT: Mucous membranes moist. Cerumen impaction right ear canal. Normal left TM. NECK: Supple. CHEST: Clear to auscultation. No respiratory distress. HEART: Regular rate and rhythm. Normal peripheral pulses. ABDOMEN: Soft, nontender, nondistended. EXTREMITIES: Normal range of motion. No edema. SKIN: Warm, dry, no rash. NEURO: No focal deficits. NIH stroke scale 0. Alert and oriented x3. PSYCH: Normal mood and affect. Course Course Emergency Course: Symptoms not felt to be related to TIA or stroke. Chronic in nature. Has had significant recent evaluation for CVA and shows no evidence of stroke. Recommend continued outpatient follow-up. Patient verbalized understanding of treatment plan. Right ear irrigated due to cerumen impaction and TM is normal. Patient reports she is now hear better. Vital Signs Vital signs: Vital Signs Temperature 98.7 F 10/17/24 10:58 Pulse Rate 71 10/17/24 10:58 Respiratory Rate 16 10/17/24 10:58 Blood Pressure 174/72 H 10/17/24 10:58 Pulse Oximetry 100 10/17/24 10:58 Oxygen Delivery Room Air 10/17/24 10:58 Temperature 98.7 F 10/17/24 10:58 Pulse Rate 71 10/17/24 10:58 Respiratory Rate 16 10/17/24 10:58 Blood Pressure 174/72 H 10/17/24 10:58 Pulse Oximetry 100 10/17/24 10:58 Oxygen Delivery Room Air 10/17/24 10:58 Procedures Ear Wax Removal Right Ear: Cerumenolytic Used: Cerumenex Results: Re-examined: cerumen removed completely TM Examination: TM(s) intact, normal appearance Ear Canal Exam: atraumatic Patient Tolerated Procedure: well Complications: no problems Technique: ear canal irrigated Medical Decision Making Vital Signs Vital Signs: Vital Signs Temperature 98.7 F 10/17/24 10:58 Pulse Rate 71 10/17/24 10:58 Respiratory Rate 16 10/17/24 10:58 Blood Pressure 174/72 H 10/17/24 10:58 Pulse Oximetry 10/17/24 10:58 Oxygen Delivery Room Air 10/17/24 10:58 Temperature 98.7 F 10/17/24 10:58 Pulse Rate 10/17/24 10:58 Respiratory Rate 16 10/17/24 10:58 Blood Pressure 174/72 H 10/17/24 10:58 Pulse Oximetry 10/17/24 10:58 Oxygen Delivery Room Air 10/17/24 10:58 Lab Data 10/17/24 12:15 10/17/24 12:15 Labs: Lab Results 10/17/24 10/17/24 Range/Units 12:15 12:48 WBC 8.8 (4.5-10.0) K/mm3 RBC 4.56 (4.2-5.4) M/mm3 Hgb 14.0 (12.0-15.0) g/dL Hct 43.5 (37.0-47.0) % MCV 95.4 (80-100) fl MCH 30.7 (26-34) pg MCHC 32.2 (32-36) g/dl RDW 12.6 (11.5-14.5) % Plt Count 305 (150-375) k/mm3 MPV 9.6 (7.4-10.4) fl Immature Gran % (Auto) 0.5 (0-0.5) % Neut % (Auto) 72.5 (45.5-73.1) % Lymph % (Auto) 16.3 L (18.3-44.2) % [place] % (Auto) 8.4 (2.6-8.5) % Eos % (Auto) 1.6 (0-4.4) % Baso % (Auto) 0.7 (0.2-1.2) % Lymph # (Auto) 1.44 (0.9-3.2) K/mm3 [place] # (Auto) 0.7 H (0.1-0.6) K/mm3 Eos # (Auto) 0.1 (0-0.3) K/mm3 Baso # (Auto) 0.1 (0.0-0.1) K/mm3 Abs Immat Gran (auto) 0.04 H (0.00-0.031) K/mm3 Absolute Neuts (auto) 6.4 (1.3-6.7) K/mm3 Absolute Nucleated RBC 0.000 (0.0-0.012) K/mm3 Nucleated RBC % 0.0 (0.0-0.2) % PT 12.7 (11.1-14.7) Seconds INR 0.9 APTT 26.8 (22.3-36.8) Seconds Sodium 137 (137-145) mmol/L Potassium 3.8 (3.4-5.0) mmol/L Chloride 102 (98-107) mmol/L Carbon Dioxide 28 (22-30) mmol/L Anion Gap 7 (4-12) mmol/L BUN 16 (7-17) mg/dL Creatinine 0.89 (0.7-1.0) mg/dL Estim Creat Clear Calc 35 ml/min Estimated GFR > 60 (59 - ) Glucose 120 H (65-110) mg/dL Calcium 9.5 (8.4-10.2) mg/dL Total Bilirubin 0.6 (0.2-1.3) mg/dL AST 38 H (14-36) U/L ALT 18 (6-35) U/L Alkaline Phosphatase 75 (38-126) U/L Total Protein 7.8 (6.3-8.2) g/dL Albumin 4.4 (3.5-5.1) g/dL Urine Color Yellow (Yellow) Urine Appearance Clear (Clear) Urine pH 7.0 (5.0-9.0) Ur Specific [place] 1.008 (1.001-1.035) Urine Protein Negative (Negative) mg/dL Urine Glucose (UA) Negative (Negative) mg/dL Urine Ketones Negative (Negative) mg/dL Ur Blood (Man) Negative (Negative) Urine Nitrate Negative (Negative) Urine Bilirubin Negative (Negative) Urine Urobilinogen 0.2 (<2.0) mg/dL Add Ur Microanalysis Reviewed Leukocyte Esterase Rfl 1+ H (Negative) PRANAV/UL Urine RBC 0-2 (0-2) /hpf Urine WBC 0-5 (0-3) /hpf Ur Squamous Epith Cells None seen (Few) /hpf Urine Bacteria None seen /hpf Urine Casts 0-2 Urine Mucus Present /lpf Imaging Data Radiologist's impression: ITS Impressions Head CT 10/17/24 11:25 Impression: No acute intracranial hemorrhage or suspicious mass effect. Chest X-Ray 10/17/24 11:35 IMPRESSION: No focal infiltrate or effusion. ECG Data EKG #1: ECG completion date: 10/17/24 ECG completion time: 12:21 EKG Interpretation: normal rate (62), sinus rhythm, no ST changes, normal QRS and normal QT Discharge Plan Discharge Clinical Impression: Impacted cerumen, Weakness Patient Disposition: Home Condition: Stable Instructions: Carbamide Peroxide (Into the ear), Weakness (ED) Additional Instructions: Return to the ER if you cannot move an arm or leg, you have slurred speech, you have new confusion, or you have additional concerns. Patient Language: [place]se Prescriptions: No Action aspirin [Adult Low Dose Aspirin] 81 mg tablet,delayed release (DR/EC) 81 mg PO DAILY multivitamin Tablet 1 tablet PO DAILY amlodipine 5 mg tablet 5 mg PO DAILY Qty: 30 0RF cholecalciferol (vitamin D3) 50 mcg (2,000 unit) tablet 50 mcg PO DAILY Qty: 90 2RF metoprolol tartrate 50 mg tablet See Rx Instructions .ROUTE .COMPLEX Qty: 200 2RF Dose Instruction: TAKE 1 TABLET BY MOUTH TWICE DAILY Rx Instructions: TAKE 1 TABLET BY MOUTH TWICE DAILY atorvastatin 10 mg tablet See Rx Instructions .ROUTE .COMPLEX Qty: 100 2RF Dose Instruction: TAKE 1 TABLET BY MOUTH DAILY AT BEDTIME Rx Instructions: TAKE 1 TABLET BY MOUTH DAILY AT BEDTIME Follow-up/Referrals: Ken Rizo MD [Primary Care Provider] - 1 Week Quality Stroke Scale Stroke Scale 1: 1a Level of consciousness: alert-0 1b Level of consciousness questions: answers both correctly-0 1c Level of consciousness commands: obeys both correctly-0 2 Best gaze: normal-0 3 Visual: no visual loss-0 4 Facial palsy: normal-0 5a Motor: left arm: no drift-0 5b Motor: right arm: no drift-0 6a Motor: left leg: no drift-0 6b Motor: right leg: no drift-0 7 Limb ataxia: absent-0 8 Sensory: normal-0 9 Best language: no aphasia-0 10 Dysarthria: normal-0 11 Extinction and inattention: no abnormality-0 Level:: 0
[2024-10-17] MEDS: CARBAMIDE PEROXIDE 6.5% OT SOLN 15 ML BTL 5 DROP RIGHT EAR (13:45)
[2024-10-17] MEDS: HYDROGEN PEROXIDE 3% SOLN(*SP) 473 ML BOTTLE (14:38)
== END 2024-10-17 15:04 | disposition home or self-care (01) ==
PROVIDERS: Emergency Provider Emergency Medicine; PCP Family Medicine
DX: R53.1 Weakness (principal); H61.21 Impacted cerumen, right ear; I65.21 Occlusion and stenosis of right carotid artery; E55.9 Vitamin D deficiency, unspecified; E78.5 Hyperlipidemia, unspecified; I10 Essential (primary) hypertension; Z87.891 Personal history of nicotine dependence; Z79.82 Long term (current) use of aspirin; Z79.899 Other long term (current) drug therapy
CPT/HCPCS: 36415; 69209; 70450; 71046; 80053; 81001; 85025; 85610; 85730; 87086; 93005; 99284; A9270